=== PATIENT | female | born 1985 | race Caucasian/White ===

== ENCOUNTER 2016-09-06 08:32 | Emergency (ER) | payer OTHER ==
[2016-09-06 08:47] VITALS: BP 113/60; PULSE 74; RESP 16; TEMP 97.9; O2SAT 99
--- NOTE | 2016-09-06 09:38 | UCPHY ---
H & P Time Seen by Provider: 09/06/16 09:31 Patient Type: Established HPI/ROS: This patient presents with a chief complaint of sore throat and white patches in her throat which began 5 days ago. Early on she had a subjective fever. And subsequently became hoarse and lost her voice although this is improved significantly. She admits to right ear pain and minimal nasal congestion. She denies headache and myalgias currently. She denies chest pain or shortness of breath. Smoking Status: Never smoked Physical Exam: GENERAL: Well-appearing, well-nourished and in no acute distress. HEAD: Atraumatic, normocephalic. EYES: sclera anicteric, conjunctiva are normal. ENT: TMs normal, nares patent, oropharynx clear without exudates. Moist mucous membranes. NECK: Normal range of motion, supple without lymphadenopathy or JVD. LUNGS: Breath sounds clear to auscultation bilaterally and equal. No wheezes or rales but there is an occasional rhonchi. HEART: Regular rate and rhythm no pitting or edema. No clubbing or cyanosis. NEUROLOGICAL: Cranial nerves II through XII grossly intact. Normal speech, normal gait. PSYCH: Normal mood, normal affect. SKIN: Warm, dry, normal turgor, no visible rashes or lesions. Constitutional: Initial Vital Signs Temperature (C) 36.6 C 09/06/16 08:36 Heart Rate 74 09/06/16 08:36 Respiratory Rate 16 09/06/16 08:36 Blood Pressure 113/60 09/06/16 08:36 O2 Sat (%) 99 09/06/16 08:36 O2 Delivery Mode Room Air Allergies/Adverse Reactions: No Known Allergies Allergy (Unverified 01/06/16 19:46) Home Medications: Medication Instructions Recorded NK [No Known Home Meds] 01/06/16 Medical Decision Making ED Course/Re-evaluation: I believe that this patient has a bur viral syndrome and that further investigation is not indicated at this time. Antibiotics are not indicated. - Data Points Laboratory Results: 09/06/16 09/06/16 Unknown 08:40 Group A Strep Screen NEGATIVE (NEGATIVE) Group A Strep DNA Pending Departure - Departure Disposition: Home, Routine, Self-Care Clinical Impression: Pharyngitis Qualifiers: Pharyngitis/tonsillitis etiology: unspecified etiology Qualified Code(s): J02.9 - Acute pharyngitis, unspecified Condition: Good Instructions: Pharyngitis (ED) Additional Instructions: If your symptoms have not improved in 5 days or if you're not completely well in 10 days you should be re-evaluated. Cause for concern would be fever, chest pain or increasing shortness of breath. Activity as tolerated. Diet as tolerated. Adult Pain & Fever Control: We recommend Acetaminophen (Tylenol) and Ibuprofen (Motrin, Advil) for pain and fever control. When fever is high or pain severe, both drugs can be used at the same time, but at different intervals. Please note the time differences. Your dose is: Acetaminophen [650]mg every 4 to 6 hours ibuprofen [600]mg every [6] hours with food OR naproxen Sodium (Aleve) [440]mg every 12 hours. Note: do not take Acetaminophen with Hydrocodone (Vicodin, Lortab) or Oxycodone (Percocet). These medications also contain Acetaminophen. No more than 3000 mg of Acetaminophen should be taken in 24 hours (for an adult) . The maximal dose of ibuprofen that it is safe in a 24-hour period is 2400 mg. You may take 400 mg every 4 hours, 600 mg every 6 hours or 800 mg every 8 hours safely. Referrals: NONE *PRIMARY CARE P,. [Primary Care Provider] - As per Instructions - PQRS PQRS Measurement: Not applicable
== END 2016-09-06 09:49 | disposition home or self-care (01) ==
LOC: CED 08:32
DX: J02.9 Acute pharyngitis, unspecified (principal); H92.01 Otalgia, right ear
CPT/HCPCS: 87880-PO; 99214-PO; G0463-PO